=== PATIENT | male | born 1995 | race Caucasian/White ===

== ENCOUNTER 2022-01-09 00:01 | Emergency (ER) | payer OTHER ==
[~2022-01-09] VITALS: Ht 167.7 cm; Wt 70.0 kg
[2022-01-09] MEDS ORDERED: RX-ONDANSETRON 4 MG ODT (ZOFRAN) PPK #4 PO STA (00:54)
[2022-01-09] MEDS ORDERED: ONDA4TAB11 PO (00:54)
--- NOTE | 2022-01-09 00:54 | ED General ---
General Chief Complaint: Cough/Cold/Flu Symptoms Stated Complaint: N/V;WEAK;LIGHTHEADED;HEADACHE Nursing Triage Note: PT AMBULATORY INTO ER WITH COMPLAINTS OF SHAKES, WEAK, VOMITING X1 HOUR. PT STATES HE VOMITED 1 TIME. PT DENIES BEING AROUND ANYONE SICK. Source of Information: Patient History of Present Illness Date Seen by Provider: Jan 09, 2022 Time Seen by Provider: 00:15 Initial Comments PT ARRIVES VIA POV FROM HOME C/O NAUSEA AND VOMITED X 1--BEGAN LESS THAN AN HOUR AGO NO DIARRHEA NO ABDOMINAL PAIN NO FEVER FEELS WEAK AND SHAKEY FELT FINE ALL DAY DENIES ANY SICK CONTACTS ATE [employer] THIS AFTERNOON PT HAS HAD COVID-19 VACCINE X 2--SECOND ONE IN AUGUST 2021 NO FLU VACCINE PCP: ABRAHAM Allergies and Home Medications Allergies Coded Allergies: No Known Drug Allergies (Unverified , 01/09/22) Patient Home Medication List Home Medication List Reviewed: Yes Ondansetron (Ondansetron Odt) 4 Mg Tab.rapdis, 4 MG PO Q4H Prescribed by: DIXON STEVEN on 01/09/22 0054 Review of Systems Review of Systems Constitutional: see HPI EENTM: no symptoms reported Respiratory: no symptoms reported Cardiovascular: no symptoms reported Gastrointestinal: see HPI; No abdominal pain, No diarrhea; nausea, vomiting Genitourinary: no symptoms reported Musculoskeletal: no symptoms reported Skin: no symptoms reported Psychiatric/Neurological: No Symptoms Reported Hematologic/Lymphatic: No Symptoms Reported Immunological/Allergic: no symptoms reported Past Vlgidzu-Bxpvoc-Ihvsek Hx Patient Social History Tobacco Use?: No Use of E-Cig and/or Vaping dev: No Substance use?: No Alcohol Use?: Yes Alcohol type: Hard Liquor Alcohol Frequency: Daily Pt feels they are or have been: No Immunizations Up To Date Influenza Vaccine Up-to-Date: No; Not Current First/Initial COVID19 Vaccinat: 10/22 Physical Exam Vital Signs Vital Signs - First Documented 01/09/22 00:16 Temp 35.8 Pulse 84 Resp 14 B/P (MAP) 137/85 (102) Pulse Ox 99 O2 Delivery Room Air Capillary Refill : Less Than 3 Seconds Height, Weight, BMI Height: '" Weight: lbs. oz. kg; 24.00 BMI Method: General Appearance: No Apparent Distress, WD/WN, Other (DOES NOT APPEAR ILL OR TO BE IN ANY DISCOMFORT OR DISTRESS) HEENT: PERRL/EOMI, Moist Mucous Membranes, Other (NO SUBCONJUNCTIVAL HEMORRHA GE. ) Neck: Normal Inspection Respiratory: Normal Breath Sounds, No Accessory Muscle Use, No Respiratory Distress Cardiovascular: Regular Rate, Rhythm, No Murmur Gastrointestinal: Non Tender, Soft Back: Normal Inspection Extremity: Normal Inspection Neurologic/Psychiatric: Alert, Oriented x3, No Motor/Sensory Deficits, Normal Mood/Affect, safety representative II-XII Norm as Tested Skin: Normal Color, Warm/Dry, Other (FEW SCATTERED PETECHIAE AROUND EYE AREA--PT STATES THAT HAPPENED AFTER HE VOMITED. ) Progress/Results/Core Measures Suspected Sepsis SIRS Temperature: Pulse: 84 Respiratory Rate: 14 Blood Pressure 137 /85 Mean: 102 Results/Orders Lab Results Laboratory Tests Test 01/09/22 00:15 Range/Units Influenza Type A (RT-PCR) Not Detected Not Detecte Influenza Type B (RT-PCR) Not Detected Not Detecte SARS-CoV-2 RNA (RT-PCR) Not Detected Not Detecte My Orders Orders - DIXON STEVEN DO Covid 19 Inhouse Test (01/09/22 00:11) Influenza A And B By Pcr (01/09/22 00:11) Isolation Central Supply Req (01/09/22 00:11) Rx-Ondansetron Po (Rx-Zofran Po) (01/09/22 00:54) Vital Signs/I&O 01/09/22 01/09/22 00:16 01:05 Temp 35.8 Pulse 84 76 Resp 14 20 B/P (MAP) 137/85 (102) 121/76 Pulse Ox 99 99 O2 Delivery Room Air Room Air Capillary Refill : Less Than 3 Seconds Blood Pressure Mean: 102 Progress Note : Progress Note PLACED IN ISOLATION ROOM PPE WORN COVID AND FLU TESTING DONE NO SYMPTOMS DURING ER STAY Departure Impression Primary Impression: Nausea and vomiting in adult Disposition: 01 HOME, SELF-CARE Condition: Improved Departure-Patient Inst. Decision time for Depature: 00:52 Referrals: NO,LOCAL PHYSICIAN (PCP) Primary Care Physician [facility] Patient Instructions: Nausea and Vomiting, Adult (DC) Add. Discharge Instructions: CLEAR LIQUIDS--WATER, BROTH, JELLO, GATORADE TOMORROW IF YOU ARE BETTER, ADD BRATS DIET TO CLEAR LIQUIDS--BANANAS, RICE, APPLESAUCE, TOAST, SALTINES FOLLOW UP WITH [facility] IN 2-3 DAYS IF NO BETTER, RETURN TO ER IF WORSE All discharge instructions reviewed with patient and/or family. Voiced understanding. Scripts Ondansetron (Ondansetron Odt) 4 Mg Tab.rapdis 4 MG PO Q4H for Nausea/Vomiting, #10 TAB Prov: DIXON STEVEN DO 01/09/22 DIXON STEVEN DO Jan 09, 2022 00:54
[2022-01-09 01:05] VITALS: BP 121/76
== END 2022-01-09 01:05 | disposition home or self-care (01) ==
LOC: ER 00:05
DX: R11.2 Nausea with vomiting, unspecified (principal); Z20.822 Contact with and (suspected) exposure to COVID-19
CPT/HCPCS: 87636; 99283